=== PATIENT | female | born 1980 | race Caucasian/White ===

== ENCOUNTER 2020-02-06 03:24 | Emergency (ER) | payer MEDICAID ==
[~2020-02-06] VITALS: Ht 167.6 cm; Wt 85.0 kg
--- NOTE | 2020-02-06 04:09 | NUR ---
Pt resting in bed. Monitor at bedside to allow for ASL interpretation.
[2020-02-06 04:20] VITALS: BP 108/62
[2020-02-06] MEDS ORDERED: HYDR-3965 PO (04:46)
[2020-02-06] MEDS ORDERED: neomy sulf/polymyx B sulf/HC 10ml otic suspension RIGHT EAR ONE (04:50)
== END 2020-02-06 05:47 | disposition home or self-care (01) ==
LOC: ER 03:25
DX: H60.91 Unspecified otitis externa, right ear (principal); R68.84 Jaw pain; M54.2 Cervicalgia; Z79.899 Other long term (current) drug therapy
CPT/HCPCS: 99283